=== PATIENT | female | born 1960 | race Caucasian/White ===

== ENCOUNTER 2020-02-24 11:06 | Emergency (ER) | payer OTHER ==
[~2020-02-24] VITALS: Ht 167.6 cm; Wt 42.0 kg
[2020-02-24] MEDS ORDERED: OMNIPAQUE 350 MG/ML, 100ML BOTTLE ONE (11:39)
--- NOTE | 2020-02-24 11:45 | NUR ---
1106 PT ARRIVED VIA EMS. PER REPORT PT FELL TODAY APPROX 0800, HIT HER HEAD. AT APPROX 1000 PT UNABLE TO WALK, HAD SLURRED SPEECH, INCREASED WEAKNESS. EMS FOUND PT TO BE A&O X2, WITH SLIGHT FACIAL DROOP ON RIGHT. PT WITH HX OF MS, PRIOR STROKES WITH RIGHT SIDE DEFICITS, MULTIPLE TIA'S, LAST APPROX 1.5 MONTHS AGO. [address] 1117 22G IV PLACED IN RIGHT HAND 1127 PT TO TRAUMA ROOM 4 1138 22G IV PLACED IN LEFT WRIST
--- NOTE | 2020-02-24 11:49 | NUR ---
PTS RICH AT BEDSIDE.
[2020-02-24 11:56] LABS: BASOPHILS % (AUTO) 1 % (0-1); EOSINOPHILS % (AUTO) 3 % (1-7); LYMPHOCYTES % (AUTO) 15 % (22-44); MEAN CORPUSCULAR HEMOGLOBIN 31.5 pg (27.0-34.8); MEAN CORPUSCULAR HGB CONC 33.3 g/dL (32.4-35.8); MEAN PLATELET VOLUME 8.3 fL (7.4-10.4); MONOCYTES % (AUTO) 5 % (2-9); NEUTROPHILS % (AUTO) 76 % (42-75); PLATELET COUNT 171 x10^3/uL (130-400); RED CELL DISTRIBUTION WIDTH 13.7 % (9.6-15.2)
[2020-02-24 11:58] LABS: MD NO
[2020-02-24] MEDS ORDERED: GLAT40SY SQ (11:58)
--- NOTE | 2020-02-24 12:03 | NUR ---
PER PTS , PT DC'D FROM [facility] APPROX 1.5 MONTHS AGO. PT HAD BEEN RECEIVING OMEPRAZOLE, SERTRALINE, KEPPRA, AND OXYBUTYNIN. PT HAS NOT RECEIVED THESE SINCE DC HOME.
[2020-02-24 12:11] LABS: INTERNATIONAL NORMALIZED RATIO 1.03 (0.93-1.1); PROTHROMBIN TIME 10.9 Seconds (9.6-11.5)
--- NOTE | 2020-02-24 12:17 | NUR ---
DR ANDRES AT BEDSIDE TO RE-EVAL PT, DISCUSS PT STATUS WITH PTS . PT DOZING INTERMITTENTLY, AROUSES TO TOUCH. NO CHANGE IN NEURO STATUS NOTED.
[2020-02-24 12:41] LABS: MICROSCOPIC AUTO
--- NOTE | 2020-02-24 12:42 | NUR ---
PT MOVED TO ROOM 22, REPORT TO MICHELLE HANSON
[2020-02-24 12:47] LABS: TROPONIN I < 0.015 ng/mL (0.000-0.045)
[2020-02-24] MEDS ORDERED: ONDANSETRON 2MG/ML, 2ML IVPush PRN (13:00)
[2020-02-24] MEDS ORDERED: LORazepam 2 MG/ML, 1ML IVPush PRN ×2 (13:00→18:00)
[2020-02-24] MEDS ORDERED: ACETAMINOPHEN 325 MG TABLET PO PRN (13:00)
[2020-02-24] MEDS ORDERED: hydrALAzine 20 MG/ML, 1ML IVPush PRN (13:00)
[2020-02-24] MEDS ORDERED: DOCUSATE 100 MG CAPSULE PO PRN (13:00)
[2020-02-24] MEDS ORDERED: POLYETHYLENE GLYCOL 17 GM PACKET PO PRN (13:00)
[2020-02-24] MEDS ORDERED: BISACODYL 10 MG SUPP PR PRN (13:00)
[2020-02-24] MEDS ORDERED: MELATONIN 5 MG TABLET PO PRN (13:00)
[2020-02-24] MEDS ORDERED: LEVETIRACETAM 1,000 MG in SODIUM CHLORIDE 0.9% 100 ML IV ONE (13:00)
--- NOTE | 2020-02-24 13:03 | NUR ---
REPORT FROM GRISELDA, ASSUME CARE OF PT AT THIS TIME. H IN TO SEE PT.
--- NOTE | 2020-02-24 13:19 | NUR ---
MED REQUEST TO PHARMACY FOR VIRAJ.
--- NOTE | 2020-02-24 13:25 | NUR ---
PT IN MRI.
[2020-02-24] MEDS ORDERED: GADOTERATE 5 MMOL/10 ML VIAL ONE (13:33)
[2020-02-24] MEDS ORDERED: SODIUM CHLORIDE 0.9% 1,000 ML IV SCH (14:00)
[2020-02-24] MEDS ORDERED: LORazepam 2 MG/ML, 1ML IVPush ONE (14:00)
[2020-02-24] MEDS ORDERED: LORazepam 2 MG/ML, 1ML ONE (14:02)
[2020-02-24] MEDS: LORazepam 2 MG/ML, 1ML IVPush PRN ×2 (14:10→14:17)
--- NOTE | 2020-02-24 14:11 | NUR ---
T/C SEIZURE IN MRI. ONSET TWITCHING TO L FRONTAL/ZOROASTRIAN AREA FOLLOWED BY L ARM AND HEAD MOVEMENT. PT BACK TO ROOM, DR ANDRES IN TO SEE. Danielle DAVILA IN TO SEE PT. KEPPRA INFUSING, ATIVAN GIVEN PER [facility] ORDER. VSS/UPDATED IN COMPUTER. NUTRITION AND DIETETICS INSTRUCTOR AT .
[2020-02-24 14:21] LABS: ALBUMIN 3.4 g/dL (3.4-5.0); BILIRUBIN, DIRECT 0.1 mg/dL (0.1-0.2)
[2020-02-24 14:23] LABS: BILIRUBIN,INDIRECT 0.2 mg/dL (0.0-2.0); BILIRUBIN,TOTAL 0.3 mg/dL (0.2-1.0); TOTAL PROTEIN 6.5 g/dL (6.4-8.2)
--- NOTE | 2020-02-24 14:27 | NUR ---
BREAK RN: PATIENT RESTING IN LOPEZ MADDOX. SPOUSE AT BEDSIDE. SENIOR GAME DESIGNER AT BEDSIDE FOR EEG.
--- NOTE | 2020-02-24 15:30 | NUR ---
NO SEIZURE ACTIVITY SEEN SINCE RETURN FROM MRI. PT RESTING, EYES CLOSED. SOME OCCASIONAL MOVEMENT OF L ARM. PT WITHDRAWS TO PAIN. AT BS. CALL LIGHT WITHIN REACH.
[2020-02-24] MEDS ORDERED: POTASSIUM CHLORIDE 40 MEQ in SODIUM CHLORIDE 0.9% 500 ML IV ONE (16:00)
--- NOTE | 2020-02-24 16:30 | NUR ---
NEURO CHECKS, NO CHANGE. LP SET UP AT BS. IVF INFUSING PER EMAR. AT BS. CALL LIGHT WITHIN REACH.
--- NOTE | 2020-02-24 17:45 | NUR ---
ATTEMPT TO CALL REPORT. ROOM ASSIGNMENT CHANGED, PT TO ADMIT TO CCU.
[2020-02-24] MEDS ORDERED: LEVETIRACETAM 100 MG/ML, 5ML IV SCH (18:00)
[2020-02-24] MEDS ORDERED: LEVETIRACETAM 500 MG in SODIUM CHLORIDE 0.9% 100 ML IV SCH (18:00)
--- NOTE | 2020-02-24 18:30 | NUR ---
PT TO BE TRANSFERRED TO [facility]. PT'S INFORMED AND DECIDED TO GO HOME. TOOK ONE BELONGING BAG WITH CLOTHING HOME.
--- NOTE | 2020-02-24 18:52 | NUR ---
DURING BS REPORT, PT STATES "MY HEAD HURTS" WHICH IS FIRST VERBALIZATION SINCE THIS RN ASSUMED CARE. PT ASKED SEVERAL QUESTIONS OF WHICH SHE ANSWERED YES OR NO. PT ASKED TO OPEN EYES BUT UNABLE TO DO SO. REPORT PROVIDED, TRANSFER OF CARE AT THIS TIME.
--- NOTE | 2020-02-24 18:57 | NUR ---
BEDSIDE REPORT RECEIVED FROM MICHELLE HANSON. PT ABLE TO OPEN EYES SLIGHTLY WHEN ASKED. PT MUMBLING "MY HEAD HURTS" THEN RETURNS TO RESTING COMFORTABLY WITH EYES CLOSED. PT SUPINE ON GURNEY, CONTINUOUS MONITORING IN PLACE.
--- NOTE | 2020-02-24 19:24 | NUR ---
TP RN: pt being transfered to [facility]. accepting physician is Dr. Martinez. Dr Thurman has already spoken with this
--- NOTE | 2020-02-24 19:40 | NUR ---
TRANSFER REPORT GIVEN TO DANYA PATE STRATEGIC COMMUNICATIONS SPECIALIST.
[2020-02-24 20:04] VITALS: BP 125/67
--- NOTE | 2020-02-24 20:08 | NUR ---
DISCUSSION WITH DR. DAVILA, HOSPITALIST. PT C/O "PAIN ALL OVER", VERBAL ORDER WITH READBACK FOR 2MG MOPHINE IV PLACED. NO ADDITIONAL NEEDS AT THIS TIME. PT SITTING UPRIGHT ON MOHAN MADDOX, RED.
[2020-02-24] MEDS ORDERED: MORPHINE SULFATE 4 MG/ML, 1ML ONE (20:11)
--- NOTE | 2020-02-24 20:29 | NUR ---
BEDSIDE REPORT TO LEANN, PT TRANSFERED LEANN MADDOX, TOLERATED WELL, PT TO DANYA.
[2020-02-24] MEDS ORDERED: MORPHINE SULFATE 4 MG/ML, 1ML IVPush ONE (20:30)
[2020-02-24] MEDS ORDERED: TEMAZEPAM 15 MG CAPSULE PO PRN (21:00)
[2020-02-24] MEDS ORDERED: FAMOTIDINE 20 MG TABLET PO SCH (21:00)
[2020-02-25] MEDS ORDERED: LEVETIRACETAM 1,000 MG in SODIUM CHLORIDE 0.9% 100 ML IV SCH (06:00)
[2020-02-25] MEDS ORDERED: Glatiramer Acetate (Copaxone) 40 MG SC SCH (18:00)
== END 2020-02-24 20:32 | disposition short-term general hospital (02) ==
LOC: ED 12:40 → EDIP 12:46 → UNDOADMIN 12:46 → ED 13:40
DX: I63.50 Cerebral infarction due to unspecified occlusion or stenosis of unspecified cerebral artery (principal); G35 Multiple sclerosis; R53.1 Weakness; R94.31 Abnormal electrocardiogram [ECG] [EKG]; R41.82 Altered mental status, unspecified; Z86.73 Personal history of transient ischemic attack (TIA), and cerebral infarction without residual deficits
CPT/HCPCS: 36415; 70450; 70496; 70498; 70553; 80047; 80076; 81001; 83735; 84146; 84484; 85025; 85610; 85730; 93005; 95707; 96365; 96366; 96368; 96375; 96376; 99291; A9575; J1953; J2060; J2270; J3480; J7030; J7040; Q9967; 95819

== ENCOUNTER 2020-10-24 13:42 | Emergency (ER) | payer OTHER ==
[~2020-10-24] VITALS: Ht 157.5 cm; Wt 52.3 kg
[~2020-10-24 13:42] MED LIST: GLAT40SY SQ
--- NOTE | 2020-10-24 13:50 | NUR ---
BIB EMS FROM HOME FOR CO UTI SX. PT HAD SUBJECTIVE FEVERS AT HOME AND INCREASED CONFUSION. HX MULTIPLE UTI'S AND HAS BEEN HOSPITALIZED FOR THEM. PER PT BECOMES SEPTIC QUICKLY. HX CVA, HEMIPARESIA. NEURO INTACT. VS ORACLE TECHNICAL DEVELOPER AXILLARY TEMP 99.3, HR 100-110, BP 80/40 STARTED ON LR PER EMS, BS 100. PT CURRENTLY HAS A R HUMERUS FX AND WAS SEEN AT HOSPITAL FOR IT 3 WEEKS AGO. PT RESTING ON GURNEY W/ SLING IN PLACE. NADN. MONITORS APPLIED. VSS. ERP DR. AUGUSTIN AT BEDSIDE FOR EVAL. REPORT GIVEN TO MARGIE HOLLAND.
[2020-10-24] MEDS ORDERED: SODIUM CHLORIDE 0.9% 1,000ML IVBOLUS ONE (14:00)
[2020-10-24] MEDS ORDERED: SODIUM CHLORIDE FLUSH 10ML SYR IVF ONE (14:00)
[2020-10-24 14:24] LABS: BASOPHILS % (AUTO) 1 % (0-1); EOSINOPHILS % (AUTO) 1 % (1-7); LYMPHOCYTES % (AUTO) 8 % (22-44); MEAN CORPUSCULAR HEMOGLOBIN 32.1 pg (27.0-34.8); MEAN CORPUSCULAR HGB CONC 32.9 g/dL (32.4-35.8); MEAN PLATELET VOLUME 8.6 fL (7.4-10.4); MONOCYTES % (AUTO) 5 % (2-9); NEUTROPHILS % (AUTO) 85 % (42-75); PLATELET COUNT 332 x10^3/uL (130-400); RED BLOOD COUNT 3.61 x10^6/uL (3.82-5.3); RED CELL DISTRIBUTION WIDTH 15.7 % (9.6-15.2)
--- NOTE | 2020-10-24 14:31 | NUR ---
DERRICK RN: STRAIGHT CATH FOR URINE, SENT TO LAB.
[2020-10-24 14:34] LABS: ALANINE AMINOTRANSFERASE 13 U/L (12-78); ALBUMIN 2.9 g/dL (3.4-5.0); ANION GAP 7 mmol/L (5-15); CALCIUM 8.3 mg/dL (8.5-10.1); CHLORIDE 111 mmol/L (98-107); CREATININE 0.39 mg/dL (0.55-1.02)
[2020-10-24 14:36] LABS: ALKALINE PHOSPHATASE 132 U/L (45-117); BILIRUBIN,TOTAL 0.5 mg/dL (0.2-1.0); TOTAL PROTEIN 6.6 g/dL (6.4-8.2)
[2020-10-24 14:42] LABS: MICROSCOPIC AUTO
--- NOTE | 2020-10-24 15:07 | NUR ---
PT RESTING ON GUNEY. NADN. MOON.
[2020-10-24] MEDS ORDERED: CEFTRIAXONE 1,000 MG in DEXTROSE 5% 50 ML IVPB ONE (16:00)
[2020-10-24] MEDS ORDERED: SODIUM CHLORIDE 0.9%, 500ML IVBOLUS ONE (16:30)
[2020-10-24 16:55] VITALS: BP 98/59
--- NOTE | 2020-10-24 16:56 | NUR ---
PT RESTING ON GURANKUR. LOPEZ. VSS. AT BEDSIDE. AWARE OF POC FOR DC AND IS AGREEABLE.
== END 2020-10-24 17:35 | disposition home or self-care (01) ==
LOC: ED 17:19
DX: E86.0 Dehydration (principal); N39.0 Urinary tract infection, site not specified; R50.9 Fever, unspecified; R00.0 Tachycardia, unspecified
CPT/HCPCS: 36415; 71045; 80053; 81001; 83605; 85025; 87040; 87086; 93005; 96361; 96365; 99285; J0696; J7030; J7040; 51702

== ENCOUNTER 2020-10-29 15:37 | Inpatient (IN) | payer OTHER ==
[~2020-10-29] VITALS: BP_DIAS 83; Ht 172.7 cm; Wt 50.0 kg
[2020-10-29] MEDS ORDERED: SODIUM CHLORIDE FLUSH 10ML SYR IVF ONE (16:30)
[2020-10-29] MEDS ORDERED: PLEASE ENTER HEIGHT AND WEIGHT MC SCH ×2 (16:30→22:30)
[2020-10-29] MEDS ORDERED: PLEASE ENTER ALLERGIES MC SCH (16:30)
[2020-10-29] MEDS ORDERED: SODIUM CHLORIDE 0.9% 1,000ML IVBOLUS ONE (16:30)
[2020-10-29 16:47] LABS: ALANINE AMINOTRANSFERASE 11 U/L (12-78); ALBUMIN 2.8 g/dL (3.4-5.0); ANION GAP 4 mmol/L (5-15); CALCIUM 8.8 mg/dL (8.5-10.1); CHLORIDE 112 mmol/L (98-107)
[2020-10-29 16:51] LABS: ALKALINE PHOSPHATASE 123 U/L (45-117); BILIRUBIN,TOTAL 0.3 mg/dL (0.2-1.0); TOTAL PROTEIN 6.2 g/dL (6.4-8.2); TROPONIN I < 0.015 ng/mL (0.000-0.045)
[2020-10-29 17:04] LABS: BASOPHILS % (AUTO) 1 % (0-1); EOSINOPHILS % (AUTO) 2 % (1-7); LYMPHOCYTES % (AUTO) 29 % (22-44); MEAN CORPUSCULAR HEMOGLOBIN 31.9 pg (27.0-34.8); MEAN CORPUSCULAR HGB CONC 32.9 g/dL (32.4-35.8); MEAN PLATELET VOLUME 9.2 fL (7.4-10.4); MONOCYTES % (AUTO) 8 % (2-9); NEUTROPHILS % (AUTO) 60 % (42-75); PLATELET COUNT 187 x10^3/uL (130-400); RED BLOOD COUNT 3.59 x10^6/uL (3.82-5.3); RED CELL DISTRIBUTION WIDTH 16.1 % (9.6-15.2)
--- NOTE | 2020-10-29 18:45 | NUR ---
otr owner operator note: Pt to room from [facility].
[2020-10-29 19:13] LABS: MICROSCOPIC NOT IND
[2020-10-29] MEDS ORDERED: ONDANSETRON 2MG/ML, 2ML IVPush PRN (21:00)
[2020-10-29] MEDS ORDERED: POLYETHYLENE GLYCOL 17 GM PACKET PO PRN (21:00)
[2020-10-29] MEDS ORDERED: LABETALOL 5MG/ML, 20ML IV PRN (21:00)
[2020-10-29] MEDS ORDERED: ACETAMINOPHEN 650 MG/20.3 ML UDC PO PRN (21:00)
[2020-10-29] MEDS ORDERED: GUAIFENESIN/DM 200-20MG, 10ML UDC PO PRN (22:00)
[2020-10-29] MEDS: ENOXAPARIN 30 MG/0.3 ML SQ SCH (23:00)
--- NOTE | 2020-10-29 23:52 | NUR ---
ASHLEIGH HANSON SUPERVISED PLACEMENT OF YAMEL
[2020-10-30] MEDS ORDERED: ATORVASTATIN 80 MG TABLET ONE ×2 (00:03→20:24)
[2020-10-30] MEDS ORDERED: ENOXAPARIN 60 MG/0.6 ML ONE (00:03)
[2020-10-30] MEDS: ATORVASTATIN 80 MG TABLET PO SCH ×2 (00:06→20:25)
[2020-10-30 07:04] LABS: BASOPHILS % (AUTO) 1 % (0-1); EOSINOPHILS % (AUTO) 3 % (1-7); LYMPHOCYTES % (AUTO) 29 % (22-44); MEAN CORPUSCULAR HEMOGLOBIN 32.1 pg (27.0-34.8); MEAN CORPUSCULAR HGB CONC 33.4 g/dL (32.4-35.8); MEAN PLATELET VOLUME 9.1 fL (7.4-10.4); MONOCYTES % (AUTO) 7 % (2-9); NEUTROPHILS % (AUTO) 60 % (42-75); PLATELET COUNT 190 x10^3/uL (130-400); RED BLOOD COUNT 3.42 x10^6/uL (3.82-5.3); RED CELL DISTRIBUTION WIDTH 15.2 % (9.6-15.2)
[2020-10-30 07:13] LABS: ALBUMIN 2.9 g/dL (3.4-5.0); ANION GAP 5 mmol/L (5-15); CALCIUM 8.6 mg/dL (8.5-10.1); CHLORIDE 107 mmol/L (98-107)
[2020-10-30 07:17] LABS: ALANINE AMINOTRANSFERASE 13 U/L (12-78); ALKALINE PHOSPHATASE 131 U/L (45-117); BILIRUBIN,TOTAL 0.5 mg/dL (0.2-1.0); CHOL/HDL RATIO 2.9; CHOLESTEROL, TOTAL 131 mg/dL (140-239); HDL CHOL % 34 % (28-40); HDL CHOLESTEROL (DIRECT) 45 mg/dL (40-60); LDL CHOLESTEROL,CALCULATED 66 mg/dL (54-169); LDL/HDL RATIO 1.5 (0.5-3.0); TOTAL PROTEIN 6.1 g/dL (6.4-8.2); TRIGLYCERIDES 100 mg/dL (50-200); VLDL CHOLESTEROL 20 mg/dL (0-25)
--- NOTE | 2020-10-30 07:17 | NUR ---
TOOK REPORT FROM JETT RN, ASSUME CARE AT THIS TIME. PT IN A HOSPITAL BED IN A GOWN WITH CONT BATCH ROLLER OPERATOR, SPO2, BP Q 30 MIN, SIDE RAILS UP X2, CALL LIGHT IN REACH. 18 G IV IN LEFT HAND.NAD
[2020-10-30] MEDS ORDERED: ASPIRIN 81 MG TABLET CHEW ONE (08:43)
[2020-10-30] MEDS: ASPIRIN 81 MG TABLET CHEW PO/NG SCH (08:47)
--- NOTE | 2020-10-30 09:06 | NUR ---
REPORT FROM MARGIE AG. PT RESTING IN [facility], MEAL TRAY PROVIDED, MONITORING IN PLACE, NADN AT THIS TIME, PT STATES NO NEEDS AT THIS TIME, WCTM.
[2020-10-30] MEDS ORDERED: POTASSIUM CHLORIDE 40 MEQ in SODIUM CHLORIDE 0.9% 500 ML IV ONE (10:30)
--- NOTE | 2020-10-30 10:30 | NUR ---
PT RESTING IN [facility], MONITORING IN PLACE, NADN AT THIS TIME, KARAN.
--- NOTE | 2020-10-30 12:20 | NUR ---
PT RESTING IN [facility], FAMILY AT BEDSIDE, MOHANN AT THIS TIME, KARAN.
[2020-10-30] MEDS ORDERED: GADOTERATE 7.5 MMOL/15ML SYR ONE (14:29)
[2020-10-30] MEDS: [UNRECOGNIZED DRUG - REMARK] MC SCH ×2 (15:04→23:00)
--- NOTE | 2020-10-30 21:08 | NUR ---
REPORT TO MARGIE IVEY.
--- NOTE | 2020-10-30 21:33 | NUR ---
Patient is resting comfortably in bed. Bed in lowest, rails engaged, call light on lap. Vital Signs within normal limits. WCTM. BREATHING EVEN AN UNLABORED. A&OX2. PT DOES NOT KNOW YEAR OR WHY SHE IS HERE.
--- NOTE | 2020-10-30 21:35 | NUR ---
PERRLA SIZE 5 AND BRISK
[2020-10-30] MEDS: ENOXAPARIN 30 MG/0.3 ML SQ SCH (23:00)
[2020-10-30] MEDS ORDERED: ENOXAPARIN 40 MG/0.4 ML ONE (23:08)
--- NOTE | 2020-10-30 23:43 | NUR ---
Patient is resting comfortably in bed. Bed in lowest, rails engaged, call light on lap. Vital Signs within normal limits. WCTM. PT PLACED ON LEFT SIDE TO PREVENT PRESSURE INJURIES.
--- NOTE | 2020-10-31 01:44 | NUR ---
PT KEEPS TAKING OFF MONITORS. PT RETTAHED TO MONITORS, VSS. NADN PT URINATED. CHANGED AND CLEANSED PT TO HOSPITAL PROTOCOL. KARAN
--- NOTE | 2020-10-31 05:16 | NUR ---
Patient is resting comfortably in bed. Bed in lowest, rails engaged, call light on lap. Vital Signs within normal limits. WCTM.
--- NOTE | 2020-10-31 05:18 | NUR ---
PT CONDITION UNHAMGED FROM PREVIOUS SHIFT. CHART WILL NOT LET ME DOCUMENT ANOTHER PHYSICAL ASSESMENT.
[2020-10-31 06:18] LABS: BASOPHILS % (AUTO) 1 % (0-1); EOSINOPHILS % (AUTO) 1 % (1-7); LYMPHOCYTES % (AUTO) 22 % (22-44); MEAN CORPUSCULAR HEMOGLOBIN 31.7 pg (27.0-34.8); MEAN CORPUSCULAR HGB CONC 33.3 g/dL (32.4-35.8); MONOCYTES % (AUTO) 6 % (2-9); NEUTROPHILS % (AUTO) 70 % (42-75); PLATELET COUNT 217 x10^3/uL (130-400); RED CELL DISTRIBUTION WIDTH 15.5 % (9.6-15.2)
[2020-10-31 06:21] LABS: ANION GAP 3 mmol/L (5-15); CALCIUM 8.9 mg/dL (8.5-10.1); CHLORIDE 104 mmol/L (98-107); CREATININE 0.37 mg/dL (0.55-1.02)
[2020-10-31] MEDS: [UNRECOGNIZED DRUG - REMARK] MC SCH (07:00)
--- NOTE | 2020-10-31 07:57 | NUR ---
US AT BEDSIDE.
[2020-10-31] MEDS ORDERED: ASPIRIN 81 MG TABLET CHEW ONE (08:15)
--- NOTE | 2020-10-31 08:55 | NUR ---
REPORT TO EPIFANIO HANSON. PT RESTING ON HOSPITAL BED W/ CALL LIGHT IN REACH AND SIDE RAILS UPX2. RESP EVEN AND UNLABORED, LOPEZ.
[2020-10-31] MEDS: ASPIRIN 81 MG TABLET CHEW PO/NG SCH (08:57)
[2020-10-31 09:37] VITALS: BP 125/83
== END 2020-10-31 15:45 | disposition home or self-care (01) | DRG 71 ==
LOC: MERGE 15:37 → ED 15:47 → EDIP 20:32 → 4WST 10-31 09:10
PROVIDERS: ADMIT Emergency Medicine; ATTEND Internal Medicine
PROC: 0T9B70Z Drainage of Bladder with Drainage Device, Via Natural or Artificial Opening (ICD-10-PCS; principal; 2020-10-29)
DX: G93.40 Encephalopathy, unspecified (principal); I69.351 Hemiplegia and hemiparesis following cerebral infarction affecting right dominant side; F03.90 Unspecified dementia, unspecified severity, without behavioral disturbance, psychotic disturbance, mood disturbance, and anxiety; G40.909 Epilepsy, unspecified, not intractable, without status epilepticus; G35 Multiple sclerosis; Z98.2 Presence of cerebrospinal fluid drainage device
CPT/HCPCS: 36415; 70450; 70553; 71045; 80048; 80053; 80061; 81003; 83735; 84100; 84484; 85025; 93005; 93880; 99285; J1650; J3480; 92523-GN; A9575; J7030; J7040